=== PATIENT | female | born 1990 | race Two or more races ===

== ENCOUNTER 2021-02-24 12:27 | Emergency (ER) | payer OTHER ==
[~2021-02-24] VITALS: Ht 154.9 cm; Wt 85.6 kg
[2021-02-24 12:43] VITALS: BP 129/84
== END 2021-02-24 14:05 | disposition home or self-care (01) ==
LOC: ED 14:00
DX: S93.492A Sprain of other ligament of left ankle, initial encounter (principal); X58.XXXA Exposure to other specified factors, initial encounter; Y93.89 Activity, other specified; Y92.89 Other specified places as the place of occurrence of the external cause; Y99.8 Other external cause status
CPT/HCPCS: 99283